=== PATIENT | female | born 1955 | race Caucasian/White ===

== ENCOUNTER 2017-10-18 20:15 | Emergency (ER) | END 2017-10-19 | disposition home or self-care (01) ==

== ENCOUNTER 2018-05-14 10:00 | Outpatient (CLI) | payer BC ==
--- NOTE | 2018-05-14 11:09 | DEXA Report ---
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 Regions measured are the AP Spine, femoral neck, and if needed forearm. COMPARISON: None. In accordance with the International Society for Clinical Densitometry (ISCD) guidelines, data from previous exams may be reanalyzed using current recommendations and techniques. This is done to allow a more accurate basis for comparison with the current study. FINDINGS: The data for the lumbar spine is as follows: BMD (g/cm/cm) T-SCORE Z-SCORE REGION L1 0.872 -2.1 -0.8 L2 1.018 -1.5 -0.2 L3 1.098 -0.8 0.5 L4 0.975 -1.9 -0.6 TOTAL 0.997 -1.5 -0.2 NOTE: All evaluable vertebrae are used for classification The data for the hip is as follows: BMD (g/cm/cm) T-SCORE Z-SCORE REGION Neck 0.737 -2.2 -0.9 TOTAL 0.738 -2.1 -1.2 NOTE: The femoral neck or total proximal femur, whichever is lowest, is used for classification. IMPRESSION: THE WHO CLASSIFICATION BASED ON THE INTERNATIONAL REFERENCE STANDARD IS OSTEOPENIA. THE FRACTURE RISK IS INCREASED. RECOMMENDATION: Patients with diagnosis of osteoporosis or osteopenia should have regular bone mineral density assessment. For those eligible for Medicare, routine testing is allowed once every 2 years. Testing frequency can be increased for patients who have rapidly progressing disease or for those who are receiving medical therapy to restore bone mass. COMMENT: World Health Organization (WHO) definitions for osteoporosis and osteopenia: NORMAL BMD: T-score at -1.0 or higher, fracture risk is low OSTEOPENIA BMD: T-score between -1.0 and -2.5, fracture risk is increased. OSTEOPOROSIS BMD: T-score at -2.5 or lower, fracture risk is high. National Osteoporosis Foundation recommends: 1. Obtain adequate dietary calcium (at least 1200 mg per day) and vitamin D (400-800 international units per day). 2. Participate, as appropriate, in regular weightbearing and muscle-strengthening exercise. 3. Avoid tobacco use and reduce alcohol and caffeine intake. 4. For more detailed information see the website at www.NOF.org.
== END 2018-05-14 10:01 | disposition home or self-care (01) ==
LOC: DI 10:00
PROVIDERS: ATTEND Internal Medicine
DX: M85.89 Other specified disorders of bone density and structure, multiple sites (principal); Z79.811 Long term (current) use of aromatase inhibitors
CPT/HCPCS: 77080

== ENCOUNTER 2018-06-10 08:45 | Outpatient (CLI) | payer BC ==
--- NOTE | 2018-06-10 12:23 | Mammography Report ---
Reason: Annual Screening Procedure Date: 06/10/2018 Accession Number: [id number] / [id number] Procedure: DEBORAH - Screening Mammo w/Rafael CPT Code: FULL RESULT: EXAM: Screening Mammo w/Rafael DATE: 06/10/2018 9:21 AM CLINICAL HISTORY: Routine screening. Prior history of left lumpectomy and radiation. Breast reduction right side. TECHNIQUE: Bilateral CC and MLO views were obtained. COMPARISON: 03/14/2017, 04/13/2015 and 12/13/2013 FINDINGS: There are scattered fibroglandular densities. No significant interval change. No suspicious masses, clustered microcalcifications, or regions of architectural distortion are identified. Posttreatment changes left breast are stable. IMPRESSION: Benign findings RECOMMENDATION: Routine annual screening unless otherwise clinically indicated. BIRADS CATEGORY 2: Benign findings STANDARD QUALIFYING STATEMENTS: 1. This examination was not reviewed with the aid of Computer-Aided Detection (CAD). 2. A negative or benign imaging report should not preclude biopsy if clinically suspicious findings are present. 3. Dense breasts may obscure an underlying neoplasm. 4. This examination was reviewed with the aid of 3D breast imaging (tomosynthesis).
== END 2018-06-10 08:46 | disposition home or self-care (01) ==
LOC: DI 08:45
PROVIDERS: ATTEND Internal Medicine
DX: Z12.31 Encounter for screening mammogram for malignant neoplasm of breast (principal)
CPT/HCPCS: 77063; 77067

== ENCOUNTER 2018-11-22 08:38 | Day surgery (SDC) | payer OTHER ==
[2018-11-22] MEDS ORDERED: LACTATED RINGERS 1,000 ML IV ONE (08:57)
[2018-11-22] MEDS ORDERED: MIDAZOLAM 2 MG/2 ML VIAL IVP ONE (09:15)
[2018-11-22] MEDS ORDERED: fentaNYL 250 MCG/5 ML VIAL IVP ONE (09:15)
[2018-11-22 11:02] VITALS: BP 101/72
== END 2018-11-22 08:39 | disposition home or self-care (01) ==
LOC: SDS 08:38
PROVIDERS: ATTEND Internal Medicine Gastroenterology
PROC: 0DBN8ZZ Excision of Sigmoid Colon, Via Natural or Artificial Opening Endoscopic (ICD-10-PCS; 2018-11-22)
PROC: 0DBP8ZZ Excision of Rectum, Via Natural or Artificial Opening Endoscopic (ICD-10-PCS; principal; 2018-11-22 10:00)
DX: Z12.11 Encounter for screening for malignant neoplasm of colon (principal); D12.5 Benign neoplasm of sigmoid colon; K62.1 Rectal polyp; K57.30 Diverticulosis of large intestine without perforation or abscess without bleeding
CPT/HCPCS: 45380; J3010; J7120

== ENCOUNTER 2019-04-05 13:02 | Outpatient (CLI) | payer OTHER ==
--- NOTE | 2019-04-06 09:27 | XRAY Report ---
Reason: ACUTE CHRONIC RT HIP PAIN Procedure Date: 04/05/2019 Accession Number: [id number] / [id number] Procedure: XR - Hip w/Pelvis 2-3V RT CPT Code: Final Report FULL RESULT: EXAM: PELVIS AND RIGHT HIP RADIOGRAPHY EXAM DATE: 04/05/2019 01:15 PM. CLINICAL HISTORY: ACUTE CHRONIC RT HIP PAIN. COMPARISON: PELVIS 1 VIEW 10/18/2017 10:10 PM. TECHNIQUE: Pelvis and right hip, each 1 view. FINDINGS: Bones: Normal. No fractures or bone lesion. Joints: Moderate bilateral degenerative changes of the hips, right worse than left, similar to previous study. Unremarkable SI joints. Soft Tissues: Unremarkable. IMPRESSION: Moderate degenerative joint disease, right worse on left. RADIA
== END 2019-04-05 13:03 | disposition home or self-care (01) ==
LOC: DI 13:02
PROVIDERS: ATTEND Family Medicine
DX: M16.0 Bilateral primary osteoarthritis of hip (principal)

== ENCOUNTER 2019-07-21 17:20 | Outpatient (CLI) | payer SELFPAY | END 2019-07-21 23:59 | disposition EMS.NT | LOC: EMS 17:20 | PROVIDERS: ATTEND Surgery | DX: R42 Dizziness and giddiness (principal) ==

== ENCOUNTER 2020-12-01 19:41 | Outpatient (CLI) | payer MEDICARE | END 2020-12-01 19:42 | disposition critical access hospital (66) | LOC: EMS 19:41 | DX: R42 Dizziness and giddiness (principal); H53.149 Visual discomfort, unspecified | CPT/HCPCS: A0425; A0427 ==

== ENCOUNTER 2020-12-01 20:09 | Emergency (ER) | payer MEDICARE, OTHER ==
[2020-12-01] MEDS ORDERED: SODIUM CHLORIDE 0.9% 1,000 ML IV STA ×2 (20:41→21:38)
[2020-12-01] MEDS ORDERED: ONDANSETRON 4 MG/2 ML VIAL IVP STA ×2 (20:41→22:54)
--- NOTE | 2020-12-01 20:51 | ED Physician Documentation ---
History of Present Illness - Stated complaint Stated Complaint: CP/ VOMITING - Chief complaint Chief Complaint: General - Additonal information Additional information: 65-year-old female presents to the emergency department for evaluation of acute onset dizziness, nausea as well as diarrhea. She reports that she has not been eating or drinking much the last 24 hours and she is unsure why but when she is laying on the couch she began to get sudden dizziness. She states that she has had this multiple times in the past when she is gotten dehydrated especially in [place] when she was on [place] trips. She denies any chest pain and there is no shortness of air. No focal neuro deficits. She received a liter of fluid by EMS as well as some Zofran. Review of Systems Constitutional: denies: Fever, Chills Eyes: reports: Reviewed and negative Ears: reports: Loss of hearing Nose: reports: Reviewed and negative Throat: reports: Reviewed and negative Cardiac: reports: Reviewed and negative Respiratory: denies: Dyspnea, Cough GI: reports: Nausea, Diarrhea. denies: Abdominal Pain, Vomiting : reports: Reviewed and negative Skin: denies: Rash, Lesions Musculoskeletal: denies: Neck pain, Back pain Neurologic: reports: Other (Head spinning). 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: Other - Present Medications Home Medications: Ambulatory Orders Medication Instructions Recorded Confirmed Escitalopram [Lexapro] 10 mg PO DAILY 10/18/17 12/01/20 - Allergies Allergies/Adverse Reactions: Allergies Allergy/AdvReac Type Severity Reaction Status Date / Time Sulfa (Sulfonamide Allergy Rash Verified 12/01/20 20:18 Antibiotics) - Social History Does the pt smoke?: No Smoking Status: Never smoker Does the pt drink ETOH?: No Does the pt have substance abuse?: No - Immunizations Immunizations are current?: Yes - POLST Patient has POLST: No PD ED PE EXPANDED - General General: Alert - Neck Neck: Supple w/out meningeal sx. No: Adenopathy - Cardiac Cardiac: Regular Rate, Radial strong equal, Pedal strong equal, Cap refill < 2 sec. No: Murmur Present - Respiratory Respiratory: Clear to ausultation merrill. No: Distress, Labored - Abdomen Abdomen: Normal Bowel sounds. No: Tender to palpation - Derm Derm: Normal color, Warm and dry. No: Rash - Extremities Extremities: Normal. No: Deformity, Tenderness - Neuro Neuro: Alert and Oriented X 3, CNII-XII intact - GCS Eye Opening: Spontaneous Motor: Obeys Commands Verbal: Oriented Total: 15 Results - Vitals Vitals: Vital Signs - 24 hr 12/01/20 12/01/20 20:18 22:22 Temperature 36.5 C 36.7 C Heart Rate 66 64 Respiratory 16 10 L Rate Blood Pressure 146/66 H 158/83 H O2 Saturation 96 97 Oxygen O2 Source Room air - EKG (time done) 2056 Rate: Rate (enter#) (54) Rhythm: NSR [place]: Normal Intervals: Normal NC. No: Prolonged QT QRS: Low voltage Ischemia: Normal ST segments Compare to prior EKG: Old EKG unavailable Computer interpretation: Agree with computer - Labs Labs: Laboratory Tests 12/01/20 12/01/20 12/01/20 20:57 20:57 20:57 WBC 10.2 RBC 4.49 Hgb 13.4 Hct 40.3 MCV 89.8 MCH 29.8 MCHC 33.3 RDW 11.8 L Plt Count 229 MPV 11.3 H Neut # (Auto) 7.9 H Lymph # (Auto) 1.4 L Faulkner # (Auto) 0.6 Eos # (Auto) 0.0 Baso # (Auto) 0.1 Absolute Nucleated RBC 0.00 Nucleated RBC % 0.0 Sodium 139 Potassium 3.7 Chloride 106 Carbon Dioxide 24 Anion Gap 9.0 BUN 20 Creatinine 0.8 Estimated GFR (MDRD) 72 L Glucose 146 H Calcium 8.6 Total Bilirubin 0.9 AST 26 ALT 37 Alkaline Phosphatase 66 Troponin I High Sens 3.8 Total Protein 6.9 Albumin 4.1 Globulin 2.8 Albumin/Globulin Ratio 1.5 Lipase 50 - Rads (name of study) CXR Radiology: Final report received (no acute process) CTA head Radiology: Final report received (negative for acute findings) CTA neck Radiology: Final report received (negative for acute findings, stensois or aneurysm) PD MEDICAL DECISION MAKING - ED course Complexity details: reviewed results, d/w patient, d/w family ED course: 65-year-old female presents the emergency department for evaluation of acute onset dizziness and nausea. As well as diarrhea. She states that she was sitting on the couch watching TV when she suddenly began to feel dizzy. She is unable to describe if this is a sensation of the room spinning or if it is near syncope but she does not tolerate sitting upright. She says he is only ever felt this way when she has been dehydrated on mission trips. She denies chest pain or shortness of air. No abdominal pain. She has had 1 bout of diarrhea today. Denies dysuria urgency or frequency. No fevers. Initially chest x-ray was unrevealing. EKG nonischemic. Screening labs including CBC and full chemistry panel also without worrisome findings. High- sensitivity troponin is negative. She had no focal neuro deficits and was able to do finger-nose easily at the bedside. Patient had been repleted with a total of 3 L crystalloid without any improvement in her symptoms. Therefore given unclear etiology we did perform a CT angio of the head and neck which was also without worrisome findings. Patient did have a large loose bowel movement while here in the ER so it was sent for C. difficile PCR. Results are pending. On reexam after CT results no clear improvement in patient's symptoms. She remains unable to sit upright. Her vital signs have been normal though she is modestly hypertensive here in the emergency department. Patient will be signed out to my nighttime colleague Dr. Azevedo for further evaluation and disposition. Departure - Departure Clinical Impression: Nausea Diarrhea Qualifiers: Diarrhea type: unspecified type Qualified Code(s): R19.7 - Diarrhea, unspecified
--- NOTE | 2020-12-01 21:03 | XRAY Report ---
PROCEDURE: Chest 1 View X-Ray INDICATIONS: Chest Pain TECHNIQUE: One view of the chest was acquired. COMPARISON: None FINDINGS: Surgical changes and devices: Left axillary surgical clips.. Lungs and pleura: No pleural effusions or pneumothorax. Lungs are clear. Mediastinum: Mediastinal contours appear normal. Heart size is normal. Bones and chest wall: No suspicious bony lesions. Overlying soft tissues appear unremarkable. IMPRESSION: No acute cardiopulmonary disease process. Reviewed by: Jasmin Fajrado MD, PhD on 12/01/2020 9:02 PM PDT Approved by: Jasmin Fajardo MD, PhD on 12/01/2020 9:02 PM PDT Station ID: [id number]
[2020-12-01 21:19] LABS: BASOPHILS # (AUTO) 0.1 10^3/uL (0.0-0.1); BASOPHILS % (AUTO) 0.7 %; EOSINOPHILS % (AUTO) 0.4 %; HCT - HEMATOCRIT 40.3 % (37.0-47.0); HGB - HEMOGLOBIN 13.4 g/dL (12.0-16.0); LYMPHOCYTES # (AUTO) 1.4 10^3/uL (1.5-3.5); LYMPHOCYTES % (AUTO) 14.2 %; MEAN CORPUSCULAR HEMOGLOBIN 29.8 pg (27.0-31.0); MEAN CORPUSCULAR HGB CONC 33.3 g/dL (32.0-36.0); MEAN CORPUSCULAR VOLUME 89.8 fL (81.0-99.0); MEAN PLATELET VOLUME 11.3 fL (7.9-10.8); MONOCYTES # (AUTO) 0.6 10^3/uL (0.0-1.0); MONOCYTES % (AUTO) 5.9 %; NEUTROPHILS # (AUTO) 7.9 10^3/uL (1.5-6.6); NEUTROPHILS % (AUTO) 78.1 %; PLT - PLATELET COUNT 229 10^3/uL (130-450); RED BLOOD COUNT 4.49 10^6/uL (4.20-5.40); RED CELL DISTRIBUTION WIDTH 11.8 % (12.0-15.0); WHITE BLOOD COUNT 10.2 x10^3/uL (4.8-10.8)
[2020-12-01 21:20] LABS: ALBUMIN 4.1 g/dL (3.2-5.5); ALBUMIN/GLOBULIN RATIO 1.5 (1.0-2.2); BILIRUBIN,TOTAL 0.9 mg/dL (0.2-1.0); CALCIUM 8.6 mg/dL (8.5-10.3); CREATININE 0.8 mg/dL (0.4-1.0); POTASSIUM 3.7 mmol/L (3.5-5.0); TOTAL PROTEIN 6.9 g/dL (6.7-8.2)
[2020-12-01] MEDS ORDERED: MECLIZINE 12.5 MG TABLET PO STA (22:07)
[2020-12-01] MEDS ORDERED: IOPAMIDOL-300 100 ML VIAL ONE (22:15)
[2020-12-01] MEDS ORDERED: IOPAMIDOL-300 100 ML VIAL IVP ONE (22:43)
[2020-12-02] MEDS: METOCLOPRAMIDE 10 MG/2 ML VIAL IVP STA ×2 (00:02→00:05)
[2020-12-02 00:26] LABS: B. PARAPERTUSSIS- RESP PCR PAN NOT DETECTED; B. PERTUSSIS- RESP PCR PANEL NOT DETECTED; C. PNEUMONIAE- RESP PCR PANEL NOT DETECTED; CORONAVIRUS 229E-RESP PCR NOT DETECTED; CORONAVIRUS HKU1-RESP PCR NOT DETECTED; CORONAVIRUS NL63-RESP PCR NOT DETECTED; CORONAVIRUS OC43-RESP PCR NOT DETECTED; HUMAN METAPNEUMOVIRUS NOT DETECTED; INFLUENZA A- RESP PCR PANEL NOT DETECTED; INFLUENZA B - RESP PCR PANEL NOT DETECTED; M. PNEUMONIAE- RESP PCR PANEL NOT DETECTED; PARAINFLUENZA VIRUS 1 NOT DETECTED; PARAINFLUENZA VIRUS 2 NOT DETECTED; PARAINFLUENZA VIRUS 3 NOT DETECTED; PARAINFLUENZA VIRUS 4 NOT DETECTED; RHINOVIRUS/ENTEROVIRUS NOT DETECTED; RSV- RESP PCR PANEL NOT DETECTED; SARS-CoV-2 -RESP PCR PANEL NOT DETECTED
--- NOTE | 2020-12-02 00:37 | ED Physician Documentation ---
ED Addendum - Addendum Addendum: 12/01/20 22:30 Patient endorsed to me by SANDHYA Skinner. Patient without any acute findings on labwork, however she still feels badly. Will send repeat troponin. denying chest pain at present, endorsing dizziness and nausea. 12/02/20 00:35 Patient declined nausea meds. 2nd troponin negative. still with dizziness per . sleeping in bed. 12/02/20 03:12 Patient was sleeping in the ED, NAD. I d/w her that this may be peripheral vertigo and she states she has had vertigo before at the beginning of covid with similar symptoms lasting 2 weeks that resolved after several rounds of head maneuvering. offered to perform saji/zackery hallpike but she refused. attempted to sit patient up in bed and she retched. patient still refusing nausea meds, stating they make her more nauseous. She has been in the emergency department for 7 hours now with intractable vertigo and n/v, negative workup in the ED. The only test we have not offered her is MRI which is not available till thursday. patient does not feel safe to go home and is acutely symptomatic. also with intermittent o2 sat in low 90s on 2L NC. no beds available anywhere inpatient, but we may be able to transfer for MRI. 12/02/20 03:18 d/w Dr. Malagon at [facility], accepting. Impression 1. nausea and vomiting 2. vertigo
[2020-12-02] MEDS ORDERED: SCOPOLAMINE PATCH TOP STA (03:43)
[2020-12-02 04:04] VITALS: BP 136/70
--- NOTE | 2020-12-02 07:44 | CT Report ---
PROCEDURE: ANGIO NECK W INDICATIONS: L sided facial droop, L neck pain CONTRAST: IV CONTRAST: Isovue 300 ml: 100 PO CONTRAST: *NO PO CONTRAST TECHNIQUE: After the administration of intravenous contrast, 1.5 mm axial sections acquired from the aortic arch to the [place]. Coronal 3-D maximum intensity projection (MIP) and/or volume rendering ref ormats were then performed. For radiation dose reduction, the following was used: automated exposur e control, adjustment of mA and/or kV according to patient size. COMPARISON: Correlation is made with the accompanying head CT angiogram, 12/01/2020. FINDINGS: Image quality: Motion artifact is noted. Carotid system: Incidental note is made of a common trunk off of the aorta of the right brachiocepha lic artery and the left common carotid artery (bovine type aortic arch). This is considered to be a d evelopmental variant of typically no clinical consequence. The origins of the common carotid arter ies appear patent. The common carotid arteries demonstrate normal calibers and courses. The bifurca tion regions appear normal bilaterally. The internal carotid arteries demonstrate normal caliber and course. Posterior circulation: The origins of the vertebral arteries appear patent. The more superior porti ons of the vertebral arteries demonstrate normal course and caliber. They join to form a normal appe aring basilar artery. Soft tissues: Visualized neck soft tissues demonstrate no suspicious abnormalities. The thyroid is normal in size and there are no incidental findings. Bones: No suspicious bony lesions. Visualized cervical spine appears normally aligned. Degenerati ve changes are seen, including moderate disc space narrowing at C6-C7. IMPRESSION: No hemodynamically significant stenosis can be seen within the arteries of the neck. Note: No significant discrepancy from the preliminary report. The estimate of stenosis included in the report of the imaging study was calculated using the NASCET method Reviewed by: Cesar Rae MD on 12/02/2020 6:43 AM RAEANN Approved by: Cesar Rae MD on 12/02/2020 6:43 AM RAEANN Station ID: [id number]
--- NOTE | 2020-12-02 07:47 | CT Report ---
PROCEDURE: ANGIO HEAD W/WO INDICATIONS: L sided facial droop CONTRAST: IV CONTRAST: Isovue 300 ml: 100 PO CONTRAST: *NO PO CONTRAST TECHNIQUE: Precontrast 4.5 mm thick angled axial sections acquired from the foramen magnum to the vertex. Afte r the administration of intravenous contrast, 1 mm thick sections acquired through the [place] of [place] is. Postcontrast 4.5 mm thick sections then re-acquired from the foramen magnum to the vertex. 3-di mensional upnssip-jidxocdam-txmfksnsxi (MIP) and/or volume rendering reformats were acquired of the c entral intracranial vasculature. For radiation dose reduction, the following was used: automated ex posure control, adjustment of mA and/or kV according to patient size. COMPARISON: Correlation is made with the accompanying neck CT angiogram, 12/01/2020. FINDINGS: Image quality: Excellent. Anterior circulation: Intracranial internal carotid arteries are normal in size and flow. The flow within the paired anterior cerebral arteries is normal and symmetric. The flow within the middle cer ebral arteries is normal and symmetric. The anterior communicating artery is seen. No aneurysms are seen. Posterior circulation: Visualized portions of the vertebral arteries demonstrate normal caliber, and join to form a normal appearing basilar artery. Flow within the posterior cerebral arteries is norm al and symmetric. No aneurysms are seen. CSF spaces: Ventricles are normal in size and shape. Basal cisterns are patent. No extra-axial flu id collections. Brain: No midline shift. No intracranial bleeds or masses. Cervantes-white matter interface appears int act. Skull and face: Calvarium and facial bones appear intact, without suspicious lesions. With a histor y of left-sided facial droop, scrutiny is given to the course of the left facial nerve, including wit hin the parotid gland. No masses or abnormal enhancement can be seen to explain the left-sided facial droop. Sinuses: Visualized sinuses and mastoids are clear. IMPRESSION: No intracranial hemorrhage is seen. No significant intracranial arterial abnormalities are seen. No imaging explanation is found for the patient's presenting symptoms. Note: No significant discrepancy from the preliminary report. Reviewed by: Cesar Rae MD on 12/02/2020 6:45 AM RAEANN Approved by: Cesar Rae MD on 12/02/2020 6:45 AM RAEANN Station ID: [id number]
== END 2020-12-02 04:48 | disposition short-term general hospital (02) ==
LOC: EDUNIT# → ED 20:09
DX: R19.7 Diarrhea, unspecified (principal); R11.0 Nausea; R42 Dizziness and giddiness; Z20.822 Contact with and (suspected) exposure to COVID-19
CPT/HCPCS: 36415; 70496; 70498; 71045; 80053; 83690; 84484; 85025; 87493; 87631; 93005; 96374; 96376; 99284; 99285; A9270; J2765; J3490; Q9967; 0202U

== ENCOUNTER 2021-01-21 08:49 | Outpatient (CLI) | payer MEDICARE ==
--- NOTE | 2021-01-22 08:50 | Mammography Report ---
BILATERAL DIGITAL SCREENING MAMMOGRAM 3D/2D: 01/21/2021 CLINICAL: Routine screening. Personal history of left breast cancer. Comparison is made to exams dated: 06/10/2018 mammogram - [facility] and 03/14/2017 mammogram - [facility]. There are scattered fibroglandular elements in both breasts. There are benign calcifications in both breasts. There also are benign post operative findings in th e left breast. No significant masses, calcifications, or other findings are seen in either breast. There has been no significant interval change. IMPRESSION: BENIGN There is no mammographic evidence of malignancy. A 1 year screening mammogram is recommended. This exam was interpreted at Station ID: [id number]. NOTE: For mammograms, a report in lay terms will be sent to the patient. Approximately 15% of breast malignancies will not be visualized mammographically. In the management of a palpable breast mass, a negative mammogram must not discourage biopsy of a clinically suspicious lesion. Electronically Signed By: Keith cannon/marcie:01/21/2021 09:38:34 ACR BI-RADS Category 2: Benign Finding(s) 3342F PARENCHYMAL PATTERN: (A) - The breast(s) demonstrate(s) scattered fibroglandular densities. BI-RADS CATEGORY: (2) - 2 RECOMMENDATION: (ANNUAL) - Recommend routine annual screening mammography. [id number] 1 year screening LATERALITY: (B)
== END 2021-01-21 08:50 | disposition home or self-care (01) ==
LOC: DI.S 08:49
DX: Z12.31 Encounter for screening mammogram for malignant neoplasm of breast (principal); Z85.3 Personal history of malignant neoplasm of breast

== ENCOUNTER 2022-04-06 07:17 | Emergency (ER) | payer MEDICARE ==
--- NOTE | 2022-04-06 08:08 | ED Physician Documentation ---
PD HPI CHEST PAIN - Stated complaint Stated Complaint: COUGH/SOA - Chief complaint Chief Complaint: Cardiac - History obtained from History obtained from: Patient - Additional information Additional information: Patient is a 66-year-old female presenting for evaluation of midsternal chest pain that started last night and has been persistent through the overnight into this morning. She has been ill with flulike symptoms for the past 5 days with fever, body aches and a productive cough. Her cough is productive of yellow to green sputum.She reports having chest pain starting last night that feels like an ache.It is worse when she coughs And if she presses on the area.Her has also been ill with a cough.She denies headache, labored breathing, abdominal pain, vomiting, dysuria. She does report having loose stools in recent days. She denies a history of hypertension, diabetes, hyperlipidemia. Review of Systems Constitutional: reports: Fever, Myalgias Cardiac: reports: Chest pain / pressure Respiratory: reports: Cough GI: denies: Abdominal Pain, Vomiting, Diarrhea : denies: Dysuria Musculoskeletal: denies: Back pain Neurologic: denies: Headache PD PAST MEDICAL HISTORY - Past Medical History GI: Colon polyps QC LAB TECHNICIAN: Fibroids Psych: Depression - Past Surgical History Past Surgical History: No General: Colonoscopy /QC LAB TECHNICIAN: Other - Present Medications Home Medications: Ambulatory Orders Medication Instructions Recorded Confirmed Escitalopram [Lexapro] 10 mg PO DAILY 10/18/17 04/06/22 Amoxicillin 1,000 mg PO TID 5 Days #30 cap 04/06/22 - Allergies Allergies/Adverse Reactions: Allergies Allergy/AdvReac Type Severity Reaction Status Date / Time Sulfa (Sulfonamide Allergy Rash Verified 12/01/20 20:18 Antibiotics) - Social History Does the pt smoke?: No Smoking Status: Never smoker Does the pt drink ETOH?: No Does the pt have substance abuse?: No - Immunizations Immunizations are current?: Yes - POLST Patient has POLST: No PD ED PE NORMAL - General General: Alert and oriented X 3, No acute distress, Well developed/nourished - HEENT HEENT: Atraumatic, Moist mucous membranes, Pharynx benign - Neck Neck: Supple, no meningeal sign - Cardiac Cardiac: RRR, No murmur, Other (No rash or deformity to chest wall, mild tenderness to right of sternum) - Respiratory Respiratory: No respiratory distress, Clear bilaterally - Abdomen Abdomen: Soft, Non tender, Non distended - Derm Derm: Warm and dry - Extremities Extremities: No edema, No calf tenderness / cord - Neuro Neuro: Normal speech Results - Vitals Vitals: Vital Signs - 24 hr 04/06/22 04/06/22 04/06/22 07:27 08:26 09:30 Temperature 37.4 C 38.6 C H Heart Rate 82 83 85 Respiratory 21 18 18 Rate Blood Pressure 143/73 H 129/71 129/71 O2 Saturation 94 95 92 04/06/22 10:00 Temperature Heart Rate 82 Respiratory 20 Rate Blood Pressure 121/82 H O2 Saturation 92 Oxygen O2 Source Room air - EKG (time done) 0739 Rate: Rate (enter#) (82) Rhythm: NSR [place]: LAD Ischemia: No: ST elevation c/w ischemia - Labs Labs: Laboratory Tests 04/06/22 04/06/22 04/06/22 07:46 07:46 07:46 WBC 12.3 H RBC 4.68 Hgb 13.5 Hct 42.3 MCV 90.4 MCH 28.8 MCHC 31.9 L RDW 11.9 L Plt Count 275 MPV 10.9 H Neut # (Auto) 9.8 H Lymph # (Auto) 1.1 L [place] # (Auto) 1.3 H Eos # (Auto) 0.0 Baso # (Auto) 0.1 Absolute Nucleated RBC 0.00 Nucleated RBC % 0.0 Sodium 134 L Potassium 4.1 Chloride 95 L Carbon Dioxide 29 Anion Gap 10.0 BUN 11 Creatinine 0.8 Estimated GFR (MDRD) 72 L Glucose 149 H Calcium 9.0 Total Bilirubin 1.1 H AST 24 ALT 32 Alkaline Phosphatase 96 Troponin I High Sens 6.0 Total Protein 8.2 Albumin 3.8 Globulin 4.3 H Albumin/Globulin Ratio 0.9 L Lipase 39 Nasal Adenovirus (PCR) Nasal B. parapertussis DNA (PCR) Nasal Coronavir 229E PCR Nasal Coronavir HKU1 PCR Nasal Coronavir NL63 PCR Nasal Coronavir OC43 PCR Nasal Enterovir/Rhinovir PCR Nasal Influenza B PCR Nasal Influenza A PCR Nasal Parainfluen 1 PCR Nasal Parainfluen 2 PCR Nasal Parainfluen 3 PCR Nasal Parainfluen 4 PCR Nasal RSV (PCR) Nasal B.pertussis DNA PCR Nasal C.pneumoniae (PCR) Rainer Human Metapneumo PCR Nasal M.pneumoniae (PCR) Nasal SARS-CoV-2 (PCR) 04/06/22 09:45 WBC RBC Hgb Hct MCV MCH MCHC RDW Plt Count MPV Neut # (Auto) Lymph # (Auto) [place] # (Auto) Eos # (Auto) Baso # (Auto) Absolute Nucleated RBC Nucleated RBC % Sodium Potassium Chloride Carbon Dioxide Anion Gap BUN Creatinine Estimated GFR (MDRD) Glucose Calcium Total Bilirubin AST ALT Alkaline Phosphatase Troponin I High Sens Total Protein Albumin Globulin Albumin/Globulin Ratio Lipase Nasal Adenovirus (PCR) NOT DETECTED Nasal B. parapertussis DNA (PCR) NOT DETECTED Nasal Coronavir 229E PCR NOT DETECTED Nasal Coronavir HKU1 PCR NOT DETECTED Nasal Coronavir NL63 PCR NOT DETECTED Nasal Coronavir OC43 PCR NOT DETECTED Nasal Enterovir/Rhinovir PCR NOT DETECTED Nasal Influenza B PCR NOT DETECTED Nasal Influenza A PCR NOT DETECTED Nasal Parainfluen 1 PCR NOT DETECTED Nasal Parainfluen 2 PCR NOT DETECTED Nasal Parainfluen 3 PCR NOT DETECTED Nasal Parainfluen 4 PCR NOT DETECTED Nasal RSV (PCR) NOT DETECTED Nasal B.pertussis DNA PCR NOT DETECTED Nasal C.pneumoniae (PCR) NOT DETECTED Rainer Human Metapneumo PCR NOT DETECTED Nasal M.pneumoniae (PCR) NOT DETECTED Nasal SARS-CoV-2 (PCR) NOT DETECTED PD MEDICAL DECISION MAKING - ED course Complexity details: reviewed results, re-evaluated patient, d/w patient ED course: Patient is a 66-year-old presenting for evaluation of fever, cough, chest pain and feeling short of air.Vital signs reviewed. EKG with normal sinus rhythm. Symptoms would be atypical for ACS but given age labs and cardiac markers were obtained. Her pain is been present for greater than 6 hours and high- sensitivity troponin is negative.Doubt PE or dissection. Patient has had URI symptoms. Chest x-ray is concerning for pneumonia. Patient's port score Is class II. She appears appropriate for outpatient management. She is not hypoxic or requiring oxygen. She is tolerating p.o. well. Patient counseled on diagnosis, treatment plan and concerning symptoms to return for. Departure - Departure Disposition: 01 Home, Self Care Clinical Impression: CAP (community acquired pneumonia) Condition: Stable Instructions: ED Pneumonia Adult Prescriptions: Amoxicillin 1,000 mg PO TID 5 Days #30 cap Comments: Your testing today shows that you have pneumonia. I have started you on an antibiotic called amoxicillin which she will take for the next 5 days. I sent this prescription to [facility] in [place]. Please make sure to get plenty of rest and stay hydrated. The radiologist does recommend having a follow-up chest x-ray or CT scan Once you have been treated for your pneumonia to make sure there are not other abnormalities in your lungs which the pneumonia could be obscuring. Please call your primary care doctor to arrange for follow-up in the next 1 to 2 weeks. If you have any worsening symptoms please return to the emergency department. Your respiratory panel is pending. This will check for COVID, influenza, RSV and a number of other common cold viruses. We will notify you if it is positive for COVID. Otherwise you can check the patient portal for your results. Please continue with acetaminophen or ibuprofen as needed for fevers and body aches, plenty of fluids/hydration and rest. Return to the ER with any worsening symptoms such as difficulty breathing or vomiting. Discharge Date/Time: 04/06/22 10:05
[2022-04-06 08:19] LABS: BASOPHILS # (AUTO) 0.1 10^3/uL (0.0-0.1); BASOPHILS % (AUTO) 0.6 %; EOSINOPHILS % (AUTO) 0.2 %; HCT - HEMATOCRIT 42.3 % (37.0-47.0); HGB - HEMOGLOBIN 13.5 g/dL (12.0-16.0); LYMPHOCYTES # (AUTO) 1.1 10^3/uL (1.5-3.5); LYMPHOCYTES % (AUTO) 8.8 %; MEAN CORPUSCULAR HEMOGLOBIN 28.8 pg (27.0-31.0); MEAN CORPUSCULAR HGB CONC 31.9 g/dL (32.0-36.0); MEAN CORPUSCULAR VOLUME 90.4 fL (81.0-99.0); MEAN PLATELET VOLUME 10.9 fL (7.9-10.8); MONOCYTES # (AUTO) 1.3 10^3/uL (0.0-1.0); MONOCYTES % (AUTO) 10.5 %; NEUTROPHILS # (AUTO) 9.8 10^3/uL (1.5-6.6); NEUTROPHILS % (AUTO) 79.5 %; PLT - PLATELET COUNT 275 10^3/uL (130-450); RED BLOOD COUNT 4.68 10^6/uL (4.20-5.40); RED CELL DISTRIBUTION WIDTH 11.9 % (12.0-15.0); WHITE BLOOD COUNT 12.3 x10^3/uL (4.8-10.8)
[2022-04-06 08:29] LABS: ALBUMIN 3.8 g/dL (3.2-5.5); ALBUMIN/GLOBULIN RATIO 0.9 (1.0-2.2); BILIRUBIN,TOTAL 1.1 mg/dL (0.2-1.0); CREATININE 0.8 mg/dL (0.4-1.0); POTASSIUM 4.1 mmol/L (3.5-5.0); TOTAL PROTEIN 8.2 g/dL (6.7-8.2)
--- NOTE | 2022-04-06 08:35 | XRAY Report ---
PROCEDURE: Chest 1 View X-Ray INDICATIONS: cough/SOA TECHNIQUE: One view of the chest was acquired. COMPARISON: 12/01/2020 FINDINGS: Surgical changes and devices: None. Lungs and pleura: No pleural effusions or pneumothorax. There is mild patchy bilateral perihilar and left mid lung opacity, new since the prior examination. Mediastinum: Mediastinal contours appear normal. Heart size is normal. Bones and chest wall: No suspicious bony lesions. Overlying soft tissues appear unremarkable. IMPRESSION: Bilateral pneumonia. Follow-up PA and lateral chest x-rays or chest CT is recommended to ensure resol ution, and to exclude underlying neoplasm. Reviewed by: Oleg Sharma MD on 04/06/2022 7:33 AM [facility] Approved by: Oleg Sharma MD on 04/06/2022 7:33 AM [facility] Station ID: [id number]
[2022-04-06] MEDS ORDERED: AMOXICILLIN 250 MG CAPSULE PO STA (08:45)
[2022-04-06] MEDS ORDERED: ACETAMINOPHEN 325 MG TABLET PO STA (09:00)
[2022-04-06 10:01] VITALS: BP 121/82
[2022-04-06 10:51] LABS: B. PARAPERTUSSIS- RESP PCR PAN NOT DETECTED; B. PERTUSSIS- RESP PCR PANEL NOT DETECTED; C. PNEUMONIAE- RESP PCR PANEL NOT DETECTED; CORONAVIRUS 229E-RESP PCR NOT DETECTED; CORONAVIRUS HKU1-RESP PCR NOT DETECTED; CORONAVIRUS NL63-RESP PCR NOT DETECTED; CORONAVIRUS OC43-RESP PCR NOT DETECTED; HUMAN METAPNEUMOVIRUS NOT DETECTED; INFLUENZA A- RESP PCR PANEL NOT DETECTED; INFLUENZA B - RESP PCR PANEL NOT DETECTED; M. PNEUMONIAE- RESP PCR PANEL NOT DETECTED; PARAINFLUENZA VIRUS 1 NOT DETECTED; PARAINFLUENZA VIRUS 2 NOT DETECTED; PARAINFLUENZA VIRUS 3 NOT DETECTED; PARAINFLUENZA VIRUS 4 NOT DETECTED; RHINOVIRUS/ENTEROVIRUS NOT DETECTED; RSV- RESP PCR PANEL NOT DETECTED; SARS-CoV-2 -RESP PCR PANEL NOT DETECTED
== END 2022-04-06 10:05 | disposition home or self-care (01) ==
LOC: ED 07:17
DX: J18.9 Pneumonia, unspecified organism (principal); Z20.822 Contact with and (suspected) exposure to COVID-19
CPT/HCPCS: 36415; 71045; 80053; 83690; 84484; 85025; 87633; 93005; 99284; A9270

== ENCOUNTER 2022-04-24 13:39 | Outpatient (CLI) | payer MEDICARE ==
--- NOTE | 2022-04-24 16:08 | XRAY Report ---
PROCEDURE: Chest 2 View X-Ray INDICATIONS: PNEUMONIA TECHNIQUE: 2 views of the chest were acquired. COMPARISON: Chest x-ray, 04/06/2022 FINDINGS: Surgical changes and devices: Surgical clips in the left chest. Lungs and pleura: There are nodular densities in the left lung zone. Decreased pulmonary infiltrates . Scar or atelectasis along the right minor fissure. No pleural effusions or pneumothorax. Mediastinum: Mediastinal contours are normal. Heart size is normal. Bones and chest wall: No suspicious bony abnormalities. Soft tissues appear unremarkable. IMPRESSION: 1. Nodular densities in the left midlung zone. Recommend chest CT for follow-up evaluation. 2. Decreased bilateral pneumonia. 3. Scar or atelectasis along the right minor fissure. Reviewed by: Crystal Rodrigues MD on 04/24/2022 4:07 PM PST Approved by: Crystal Rodrigues MD on 04/24/2022 4:07 PM PST Station ID: [id number]
== END 2022-04-24 13:40 | disposition home or self-care (01) ==
LOC: DI.S 13:39
PROVIDERS: ATTEND Family Medicine
DX: J18.9 Pneumonia, unspecified organism (principal)

== ENCOUNTER 2022-05-06 14:29 | Outpatient (CLI) | payer MEDICARE ==
--- NOTE | 2022-05-06 16:41 | CT Report ---
PROCEDURE: CHEST WO INDICATIONS: ABN XR TECHNIQUE: Noncontrast 1mm axial images were acquired from the pulmonary apices to the posterior costophrenic an gles. Axial 5 mm soft tissue kernel reconstructions were performed as well as 8 mm axial MIP and cor onal and sagittal 5 mm reformations. For radiation dose reduction, the following was used: automate d exposure control, adjustment of mA and/or kV according to patient size. COMPARISON: Chest radiograph dated 04/24/2020 to and 04/06/2022. FINDINGS: Image quality: Excellent. Lungs and pleura: There is biapical scarring. Scattered scarring/atelectasis in periphery of bilatera l lung martin are seen. Bandlike atelectasis is seen anteromedial aspect of right upper lobe is seen extending along the minor fissure. Subtle ill-defined opacity in posterior and lateral periphery of l eft lower lobe are seen with masslike consolidation seen in posterior lateral left lower lobe extendi ng to lateral pleura and measures 7 mm in size series 4 image 162. Masslike consolidation involving p osterior aspect of left lower lobe is also seen measures 1.2 x 1.1 cm in size series 4 image 198. No pleural effusions or pneumothorax. Central and peripheral airways are patent and normal in caliber. Mediastinum: Heart size is normal. No pericardial effusion. Mild to moderate atherosclerotic calci fications are noted in coronary vessels and thoracic aorta. No mediastinal adenopathy by size criteri a. Thoracic aorta and central pulmonary arteries are normal in size. Esophagus is normal in caliber . No hiatal hernia. Bones and chest wall: No suspicious bony lesions. No vertebral body compression fractures. No axil maggie or supraclavicular adenopathy by size criteria. Surgical clips are noted in left axilla. The thy roid is normal in size and there are no incidental findings. Abdomen: Visualized upper abdominal solid organs and bowel loops appear normal in the absence of con trast. IMPRESSION: 1. 2 nodular opacities seen in posterior and lateral aspect of left lower lobe and may represent smal l residual nodular infiltrates versus atelectasis. Underlying malignant process cannot be excluded. C T follow-up in 3 months is recommended. 2. Band like atelectasis in the right upper lobe along minor fissure. Scattered atelectasis in periph nazanin of bilateral lung martin. No pleural effusion or pneumothorax. Airway is patent. 3. No mediastinal or hilar lymphadenopathy by size criteria. Mild to moderate atherosclerotic disease . CLINICAL RECOMMENDATION STATEMENTS: In patients <35 years with an ITN detected on CT, MRI, or extrathyroidal ultrasound, the Committee re commends further evaluation with dedicated thyroid ultrasound if the nodule is "e1 cm and has no susp icious imaging features, and if the patient has normal life expectancy. In patients "e35 years with an ITN detected on CT, MRI, or extrathyroidal ultrasound, the Committee r ecommends further evaluation with dedicated thyroid ultrasound if the nodule is "e1.5 cm and has no s uspicious imaging features, and if the patient has normal life expectancy. (ACR, 2014) Reviewed by: Rasta Valenzuela MD on 05/06/2022 4:40 PM PST Approved by: Rasta Valenzuela MD on 05/06/2022 4:40 PM PST Station ID: [id number]
== END 2022-05-06 14:30 | disposition home or self-care (01) ==
LOC: DI 14:29
PROVIDERS: ATTEND Registered Nurse
DX: R91.8 Other nonspecific abnormal finding of lung field (principal); J98.11 Atelectasis; I70.0 Atherosclerosis of aorta; I25.10 Atherosclerotic heart disease of native coronary artery without angina pectoris

== ENCOUNTER 2022-07-28 09:35 | Outpatient (CLI) | payer MEDICARE ==
--- NOTE | 2022-07-29 15:14 | Mammography Report ---
BILATERAL DIGITAL SCREENING MAMMOGRAM 3D/2D: 07/28/2022 CLINICAL: Routine screening. Family history of breast cancer. Personal history of left breast cancer. Comparison is made to exams dated: 06/27/2021 mammogram - [place], 01/21/2021 mammogram, and 06/10/19 mammogram - [facility]. There are scattered areas of fibroglandular density in both breasts (category b / 25%-50% glandular t issue). There are benign calcifications in both breasts. There also are benign post operative findings in th e left breast. No significant masses, calcifications, or other findings are seen in either breast. There has been no significant interval change. IMPRESSION: BENIGN There is no mammographic evidence of malignancy. A 1 year screening mammogram is recommended. This exam was interpreted at Station ID: [id number]. NOTE: For mammograms, a report in lay terms will be sent to the patient. Approximately 15% of breast malignancies will not be visualized mammographically. In the management of a palpable breast mass, a negative mammogram must not discourage biopsy of a clinically suspicious lesion. Electronically Signed By: Kristie quiles/marcie:07/28/2022 11:58:22 letter sent: No_Letter ACR BI-RADS Category 2: Benign Finding(s) 3342F PARENCHYMAL PATTERN: (A) - The breast(s) demonstrate(s) scattered fibroglandular densities. BI-RADS CATEGORY: (2) - 2 Mammogram [id number] 1 year screening LATERALITY: (B)
== END 2022-07-28 09:36 | disposition home or self-care (01) ==
LOC: DI.S 09:35
DX: Z12.31 Encounter for screening mammogram for malignant neoplasm of breast (principal)

== ENCOUNTER 2024-01-15 10:48 | Outpatient (CLI) | payer MEDICARE ==
--- NOTE | 2024-01-18 13:11 | Mammography Report ---
BILATERAL DIGITAL SCREENING MAMMOGRAM 3D/2D: 01/15/2024 CLINICAL: Routine screening. Personal history of left breast cancer. Comparison is made to exams dated: 07/28/2022 mammogram - [facility], 06/27/2021 mammo gram - [facility], 01/21/2021 mammogram, and 06/10/2018 mammogram - [facility]. There are scattered areas of fibroglandular density (category b / 25%-50% glandular tissue). There are benign calcifications in both breasts. There also are benign post operative findings in th e left breast. No significant masses, calcifications, or other findings are seen in either breast. There has been no significant interval change. IMPRESSION: BENIGN There is no mammographic evidence of malignancy. A 1 year screening mammogram is recommended. This exam was interpreted at Station ID: [id number]. NOTE: For mammograms, a report in lay terms will be sent to the patient. Approximately 15% of breast malignancies will not be visualized mammographically. In the management of a palpable breast mass, a negative mammogram must not discourage biopsy of a clinically suspicious lesion. Electronically Signed By: Bautista Leal M.D. [facility]:01/15/2024 14:58:37 ACR BI-RADS Category 2: Benign PARENCHYMAL PATTERN: (A) - The breast(s) demonstrate(s) scattered fibroglandular densities. BI-RADS CATEGORY: (2) - 2 RECOMMENDATION: (ANNUAL) - Recommend routine annual screening mammography. [id number] 1 year screening LATERALITY: (B)
== END 2024-01-15 10:49 | disposition home or self-care (01) ==
LOC: DI 10:48
PROVIDERS: ATTEND Registered Nurse
DX: Z12.31 Encounter for screening mammogram for malignant neoplasm of breast (principal); R92.323 Mammographic fibroglandular density, bilateral breasts; R92.1 Mammographic calcification found on diagnostic imaging of breast; Z85.3 Personal history of malignant neoplasm of breast; Z78.0 Asymptomatic menopausal state

== ENCOUNTER 2024-01-15 10:59 | Outpatient (CLI) | payer MEDICARE ==
--- NOTE | 2024-01-15 13:49 | XRAY Report ---
PROCEDURE: Chest 2V INDICATIONS: COUGH TECHNIQUE: 2 views of the chest were obtained. COMPARISON: None. FINDINGS: Surgical changes and devices: Left maxillary surgical clips Lungs and pleura: There is hyperinflation and chronic interstitial changes without focal infiltrate, pneumothorax or pleural effusion. Mediastinum: Mediastinal contours appear normal. Heart size is normal. Bones and chest wall: No suspicious bony lesions. Overlying soft tissues appear unremarkable. IMPRESSION: Hyperinflation and chronic interstitial changes. No acute findings. Reviewed by: Kuldip Burch MD on 01/15/2024 12:48 PM [facility] Approved by: Kuldip Burch MD on 01/15/2024 12:48 PM [facility] Station ID: [id number]
== END 2024-01-15 11:00 | disposition home or self-care (01) ==
LOC: DI 10:59
PROVIDERS: ATTEND Registered Nurse
DX: R05.1 Acute cough (principal)